=== PATIENT | female | born 1965 ===

== ENCOUNTER 2017-10-24 11:49 | Emergency (ER) | payer MEDICAID, OTHER ==
[2017-10-24 11:49] VITALS: BMI 33.5
[2017-10-24 11:57] VITALS: BP 137/81; PULSE 70; RESP 20; TEMP 97.7; O2SAT 96
== END 2017-10-24 12:12 | disposition left against medical advice (07) ==
LOC: C.ER 11:49
DX: Z02.89 Encounter for other administrative examinations (principal); M79.601 Pain in right arm